=== PATIENT | female | born 1990 | race American Indian/Alaskan Native ===

== ENCOUNTER 2022-05-06 06:41 | Inpatient (IN) | payer MEDICAID ==
[2022-05-04 09:26] LABS: Basophils # (Auto) 0.1 K/mm3 (0.0-0.1); Basophils % (Auto) 0.8 % (0.0-1.8); Eosinophils # (Auto) 0.2 K/mm3 (0.0-0.4); Eosinophils % (Auto) 2.5 % (0.0-4.3); Hematocrit 31.8 % (30.3-42.9); Hemoglobin 10.3 gm/dl (10.1-14.3); Lymphocytes % (Auto) 34.1 % (13.4-35.0); Mean Corpuscular HGB Conc 33 % (30-34); Mean Corpuscular Volume 76 fl (79-97); Monocytes # (Auto) 0.7 K/mm3 (0.0-0.8); Monocytes % (Auto) 8.4 % (0.0-7.3); Platelet Count 430 K/mm3 (140-440); Red Blood Count 4.21 M/mm3 (3.65-5.03); Red Cell Distribution Width 14.7 % (13.2-15.2)
--- NOTE | 2022-05-04 09:37 | Anesthesia Consultation ---
Anesthesia Consult and Med Hx Date of service: 05/06/22 - Airway Anesthetic Teeth Evaluation: Good ROM Head & Neck: Adequate Mental/Hyoid Distance: Adequate Mallampati Class: Class II Intubation Access Assessment: Probably Good - Pulmonary Exam CTA: Yes - Cardiac Exam Cardiac Exam: RRR - Pre-Operative Health Status ASA Pre-Surgery Classification: ASA1 Proposed Anesthetic Plan: General Nerve Block: TAP - Pulmonary Hx Smoking: No Hx Respiratory Symptoms: No - Cardiovascular System Hx Hypertension: No - Central Nervous System CVA: No - Endocrine Hx Renal Disease: No Hx Liver Disease: No Hx Insulin Dependent Diabetes: No Hx Non-Insulin Dependent Diabetes: No Hx Thyroid Disease: No - Hematic Hx Anemia: Yes (no hx transfusions) - Additional Comments Anesthesia Medical History Comments: No hx anesthetic complications.
[~2022-05-06 06:41] MED LIST: ACETAMINOPHEN 500 MG TAB PO SCH; CELECOXIB 200 MG CAP PO NR; GABAPENTIN 300 MG CAP PO NR; LACTATED RINGERS 1,000 ML IV SCH; MIDAZOLAM 2 MG/2 ML INJ IV NR; SCOPOLAMINE TRANSDERMAL PATCH 72 HR TD NR; fentaNYL 100 MCG/2 ML INJ IV PRN; methOCARBAMOL 1,000 MG in SODIUM CHLORIDE 0.9% 250ML 250 ML IV SCH
--- NOTE | 2022-05-06 07:44 | History and Physical Report ---
History of Present Illness Date of examination: 05/06/22 Date of admission: 05/06/22 07:04 Chief complaint: Symptomatic uterine fibroids History of present illness: 31-year-old G0 who presents with a history of multiple leiomyomas with the largest fibroid measuring 6 cm. The patient desires to conceive in the future. She reports a history of having heavy menses. Past History Past Medical History: other (Uterine fibroids) Past Surgical History: no surgical history Social history: single - Obstetrical History : 0 Para: 0 Hx # Term Pregnancies: 0 Number of Pregnancies: 0 Spontaneous Abortions: 0 Induced : 0 Number of Living Children: 0 Medications and Allergies Allergies Allergy/AdvReac Type Severity Reaction Status Date / Time No Known Allergies Allergy Unverified 04/29/22 15:37 Home Medications Medication Instructions Recorded Confirmed Last Taken Type No Known Home Medications [No 04/29/22 04/29/22 Unknown History Reported Home Medications] Active Meds: Active Medications Acetaminophen (Acetaminophen 500 Mg Tab) 1,000 mg PO PREOP OZZY Stop: 05/06/22 20:00 Celecoxib (Celecoxib 200 Mg Cap) 200 mg PO PREOP NR Stop: 05/06/22 20:00 Fentanyl (Fentanyl 100 Mcg/2 Ml Inj) 100 mcg IV ONCE PRN PRN Reason: sedation for nerve block Stop: 05/06/22 20:00 Gabapentin (Gabapentin 300 Mg Cap) 300 mg PO PREOP NR Stop: 05/06/22 20:00 Lactated Ringer's (Lactated Ringers) 1,000 mls @ 100 mls/hr IV DIRECT OZZY Stop: 05/06/22 23:59 Methocarbamol 1,000 mg/ Sodium (Chloride) 260 mls @ 250 mls/hr IV PREOP OZZY Stop: 05/06/22 15:00 Midazolam HCl (Midazolam 2 Mg/2 Ml Inj) 2 mg IV PREOP NR Stop: 05/06/22 13:00 Scopolamine (Scopolamine Transdermal Patch 72 Hr) 1 each TD PREOP NR Stop: 05/06/22 23:59 Review of Systems All systems: negative Genitourinary: vaginal bleeding - Vital Signs Vital signs: Vital Signs Temp Pulse Resp BP Pulse Ox 97.3 F L 84 16 129/88 99 05/04/22 09:15 05/04/22 09:15 05/04/22 09:15 05/04/22 09:15 05/04/22 09:15 Temp Pulse Resp BP Pulse Ox 97.3 F L 84 16 129/88 99 05/04/22 09:15 05/04/22 09:15 05/04/22 09:15 05/04/22 09:15 05/04/22 09:15 - Physical Exam Breasts: Positive: deferred Cardiovascular: Regular rate Lungs: Positive: Clear to auscultation Abdomen: Positive: normal appearance Results Result Diagrams: 05/04/22 09:10 All other labs normal. Assessment and Plan - Patient Problems (1) Leiomyoma Current Visit: Yes Status: Acute Plan to address problem: Will proceed with an exploratory laparotomy and myomectomy (2) Leiomyoma of body of uterus Current Visit: Yes Status: Acute
[2022-05-06] MEDS ORDERED: ACETAMINOPHEN 325 MG/10.15 ML ORAL LIQD UNIT DOSE ONE (07:52)
[2022-05-06] MEDS ORDERED: GABAPENTIN 500 MG/10 ML ORAL LIQD ONE (07:52)
[2022-05-06] MEDS ORDERED: GABAPENTIN 500 MG/10 ML ORAL LIQD PO NR (07:55)
[2022-05-06] MEDS ORDERED: ACETAMINOPHEN 325 MG/10.15 ML ORAL LIQD UNIT DOSE PO NR (07:55)
[2022-05-06] MEDS ORDERED: ceFAZolin/Water 2 GM/20 ML 2 GM/20 ML SYRINGE IV NR (08:00)
--- NOTE | 2022-05-06 08:58 | Anesthesia Day of Surgery ---
Anesthesia Day of Surgery - Day of Surgery Patient Examined: Yes Patient H&P Reviewed: Yes Patient is NPO: Yes
[2022-05-06] MEDS ORDERED: HYDROmorphone 0.5 MG/0.5 ML INJ IV PRN (08:59)
[2022-05-06] MEDS ORDERED: ONDANSETRON 4 MG/2 ML INJ IV PRN ×2 (09:00→13:26)
[2022-05-06] MEDS ORDERED: dexAMETHasone 4 MG/ML VIAL ONE (09:04)
[2022-05-06] MEDS ORDERED: BUPIVACAINE-EPINEPHRINE/PF 0.25%-1:200,000 (30 ML) VIAL INFILTRATI ONE (09:04)
[2022-05-06] MEDS ORDERED: SODIUM CHLORIDE 0.9% 100 ML ONE (09:59)
[2022-05-06] MEDS ORDERED: VASOPRESSIN 20 UNIT/1 ML INJ ONE (09:59)
[2022-05-06] MEDS ORDERED: ANTICOAGULANT SOD CITRATE SOLUTION MC ONE ×2 (09:59→11:19)
[2022-05-06] MEDS ORDERED: fentaNYL 100 MCG/2 ML INJ ONE (10:02)
[2022-05-06] MEDS ORDERED: propofoL 200 MG/20 ML VIAL IV ONE (10:02)
[2022-05-06] MEDS ORDERED: VASOPRESSIN 20 UNIT/1 ML INJ IM ONE (11:18)
[2022-05-06] MEDS ORDERED: SODIUM CHLORIDE 0.9% IRR 1,500 ML BOTTLE IR ONE (11:19)
[2022-05-06] MEDS ORDERED: SODIUM CHLORIDE 0.9% 100 ML IVPB IV ONE (11:19)
[2022-05-06] MEDS ORDERED: KETOROLAC 30 MG/1 ML INJ ONE (11:28)
[2022-05-06] MEDS ORDERED: dexAMETHasone 20 MG/5 ML VIAL ONE (11:28)
[2022-05-06] MEDS ORDERED: ONDANSETRON 4 MG/2 ML INJ ONE (11:28)
[2022-05-06] MEDS ORDERED: NEOSTIGMINE 10MG/10 ML INJ MDV ONE (11:37)
[2022-05-06] MEDS ORDERED: GLYCOPYRROLATE 0.4 MG/2 ML INJ ONE (11:37)
--- NOTE | 2022-05-06 11:38 | Operative Report ---
Operative Report Operative Report: Date of surgery: May 06, 2022 Preoperative diagnosis: Symptomatic uterine fibroid Postoperative diagnosis: Same as above Procedure: Exploratory laparotomy and myomectomy Surgeon: Karishma Rosales M.D. Anesthesia: General tracheal manager wastewater: Praneeth Hernandez Estimated blood loss: 100 mL Findings: 7 cm subserosal fundal leiomyoma Indication: 31-year-old G0 who presents with a history of symptomatic uterine fibroids. Procedure: The patient was taken to the operating room and a timeout was performed that confirmed the patient's identity and the surgery. The patient was placed under general endotracheal anesthesia without complication. Patient was prepped and draped in a normal sterile fashion. A Pfannenstiel skin incision was made down to the level of the fascia which was nicked in the midline and extended laterally with the Bovie cautery. Superior aspect of the rectus fascia was grasped with Cowan clamps x2 and the rectus muscle off sharply. This was performed in inferior fashion as well. The rectus muscle in the midline the peritoneum entered bluntly. Upon entry into the pelvis it was noted to be in an enlarged fibroid uterus. The findings of a subserosal fundal leiomyoma approximately 6 to 7 cm and an additional 1.5 cm leiomyoma. The serosa was injected with diluted Pitressin. The leiomyoma was excised with the Bovie cautery. The myometrium was reapproximated with 0 Vicryl in a running locked fashion until hemostatic. The tubes and ovaries were normal in appearance. Copious irrigation of the pelvis was performed. Interceed was placed over the incision. The peritoneum was reapproximated with 3-0 Vicryl in a running fashion. The fascia was closed with 0 Vicryl in a running fashion. The skin was reapproximated with 4-0 Vicryl in a subcuticular fashion. A pressure dressing was placed on the incision. All sponge laps and needle counts correct x2. The patient was successfully extubated and taken to the recovery room in stable condition.
[2022-05-06] MEDS ORDERED: ACETAMINOPHEN 325 MG TAB PO PRN (13:26)
[2022-05-06] MEDS ORDERED: IBUPROFEN 800 MG TAB PO PRN (13:26)
[2022-05-06] MEDS ORDERED: oxyCODONE /ACETAMINOPHEN 5-325MG TAB PO PRN (13:26)
[2022-05-06] MEDS ORDERED: MORPHINE 4 MG/1 ML INJ IV PRN (13:26)
[2022-05-06] MEDS ORDERED: KETOROLAC 30 MG/1 ML INJ IV PRN (13:26)
[2022-05-06] MEDS: D5W/LACTATED RINGERS 1,000 ML IV SCH (15:57)
[2022-05-06] MEDS ORDERED: PHENOL 1.4% 177 ML BOTTLE MM PRN (22:16)
[2022-05-07] MEDS: D5W/LACTATED RINGERS 1,000 ML IV SCH ×2 (01:23→16:23)
[2022-05-07 04:30] LABS: Hematocrit 30.3 % (30.3-42.9); Hemoglobin 9.2 gm/dl (10.1-14.3)
--- NOTE | 2022-05-07 10:02 | Post Anesthesia Evaluation ---
- Post Anesthesia Evaluation Patient Participated: Yes Airway Patent: Yes Stable Respiratory Function: Yes Nausea/Vomiting: No Temp > 96.8F: Yes Pain Manageable: Yes Adequeate Hydration: Yes Anesthesia Complications: No Block Receding Appropriately: Yes Patient on Ventilator: No
--- NOTE | 2022-05-07 23:42 | Progress Note ---
Assessment and Plan - Patient Problems (1) Leiomyoma Current Visit: Yes Status: Acute Plan to address problem: routine postoperative care advance diet as tolerated (2) Leiomyoma of body of uterus Current Visit: Yes Status: Acute Subjective - Subjective Date of service: 05/07/22 Interval history: Surgery discussed with patient. She denies any vomiting. Pain has been controlled Patient reports: pain well controlled, no flatus Objective - Vital Signs Latest vital signs: Vital Signs Temp Pulse Resp BP BP Pulse Ox 05/07/22 20:44 98.7 F 76 18 120/75 99 05/07/22 19:45 99 05/07/22 16:31 99.0 F 76 20 125/79 98 05/07/22 11:45 98.7 F 74 20 122/71 98 05/07/22 08:36 99.1 F 62 20 124/71 100 05/07/22 08:24 97 05/07/22 06:02 98.2 F 79 18 100 05/07/22 06:01 70 117/65 100 05/07/22 01:30 98 F 56 L 18 115/68 100 Intake and Output 05/07/22 05/07/22 05/08/22 14:59 22:59 06:59 Intake Total 1400 240 Output Total 400 250 Balance 1000 -10 Intake: IV 1000 D5lr 1,000 ml @ 125 mls/ 1000 hr IV DIRECT OZZY Rx#: [id number] Oral 400 240 Output: Urine 400 250 Void 400 250 Other: Total, Intake Amount 200 240 Total, Output Amount 400 250 Voiding Method Toilet # Voids Void 1 - Exam Abdomen: Present: normal appearance, soft - Labs Labs: Abnormal lab results 05/07/22 Range/Units 04:02 Hgb 9.2 L (10.1-14.3) gm/dl
--- NOTE | 2022-05-08 07:39 | Progress Note ---
Assessment and Plan A: POD#2 s/p ex lap, myomectomy P: Routine postop care Anticipate discharge today Subjective - Subjective Date of service: 05/08/22 Principal diagnosis: POD#2 s/p ex lap, myomectomy Interval history: Patient feeling well this morning. Plus flatus. Voiding without difficulty. No vaginal bleeding. Pain well controlled. Patient reports: appetite normal, voiding normally, pain well controlled, flatus, ambulating normally, no bowel movement Objective - Vital Signs Latest vital signs: Vital Signs Temp Pulse Resp BP Pulse Ox 05/08/22 06:10 20 05/08/22 01:17 98.5 F 77 16 108/62 96 05/07/22 20:44 98.7 F 76 18 120/75 99 05/07/22 19:45 99 05/07/22 16:31 99.0 F 76 20 125/79 98 05/07/22 11:45 98.7 F 74 20 122/71 98 05/07/22 08:36 99.1 F 62 20 124/71 100 05/07/22 08:24 97 Intake and Output 05/07/22 05/08/22 05/08/22 22:59 06:59 14:59 Intake Total 240 240 Output Total 250 Balance -10 240 Intake: Oral 240 Intake, Free Water 240 Output: Urine 250 Void 250 Other: Total, Intake Amount 240 Total, Output Amount 250 # Voids Void 1 1 - Exam Breasts: Present: deferred Abdomen: Present: soft. Absent: distention Incision: Present: intact
--- NOTE | 2022-05-08 07:42 | Discharge Summary ---
Providers - Providers Date of Admission: 05/06/22 07:04 Date of discharge: 05/08/22 Attending physician: DALE MEI Hospitalization Reason for admission: other (myomectomy ) Procedure details: Please see operative report Incision: intact Other procedures: none complications: none Discharge diagnosis: other (Fibroid uterus ) Hospital course: Patient was admitted for exploratory laparotomy and abdominal myomectomy she tolerated well. Her postoperative course was uncomplicated and she met discharge criteria on postop day #2. She will follow-up in the office of Dr. Saint Austin in 4 weeks. Condition at discharge: Stable Disposition: 01 HOME / SELF CARE / HOMELESS - Discharge Diagnoses (1) Obesity Status: Acute (2) Leiomyoma of body of uterus Status: Acute Plan - Discharge Medications Prescriptions: Docusate Sodium [Colace] 100 mg PO BID PRN #30 capsule PRN Reason: Constipation oxyCODONE /ACETAMINOPHEN [Percocet 5/325] 1 tab PO Q6HR PRN #30 tablet PRN Reason: Pain - Provider Discharge Summary Activity: routine, no sex for 6 weeks, no heavy lifting 4 weeks, no strenuous exercise Diet: routine Instructions: routine Additional instructions: [] Smoking cessation referral if applicable(refer to patient education folder for contact #) [] Refer to [facility] Booklet Call your doctor immediately for: * Fever > 100.5 * Heavy vaginal bleeding ( >1 pad per hour) * Severe persistent headache * Shortness of breath * Reddened, hot, painful area to leg or breast * Drainage or odor from incision. * Keep incision clean and dry at all times and follow doctor's instructions regarding bathing/showering - Follow up plan Follow up: JOANNE LOZA [Other] - 7 Days DALE MEI MD [Staff Physician] - 06/03/22 (Please call to schedule appointment with Dr. Saint Austin)
[2022-05-08] MEDS ORDERED: IBUPROFEN 800 MG TAB PO SCH (09:00)
[2022-05-08 09:23] VITALS: BP 120/56
[2022-05-08] MEDS ORDERED: LACTULOSE 20 GM/30 ML ORAL LIQD PO SCH (10:00)
== END 2022-05-08 15:05 | disposition home or self-care (01) | DRG 743 ==
LOC: 3A 07:04 → OB 11:54
PROVIDERS: ADMIT Obstetrics & Gynecology; ATTEND Obstetrics & Gynecology
PROC: 0UB90ZZ Excision of Uterus, Open Approach (ICD-10-PCS; principal; 2022-05-06)
DX: D25.9 Leiomyoma of uterus, unspecified (principal); E66.9 Obesity, unspecified; Z68.31 Body mass index [BMI] 31.0-31.9, adult; Z20.822 Contact with and (suspected) exposure to COVID-19
CPT/HCPCS: 36415; 64450; 84703; 85014; 85018; 85025; 86850; 86900; 86901; 88305; G0378; J1815; J3490; J7060; C1765; J1100; J1885; J2250; J2270; J2405; J2704; J2710; J3010; J7120; J7121; U0003